=== PATIENT | male | born 1955 | race Caucasian/White ===

== ENCOUNTER 2023-03-11 11:40 | Emergency (ER) | payer MEDICARE, MEDICAID ==
[~2023-03-11] VITALS: Ht 172.7 cm; Wt 72.7 kg
[2023-03-11 11:54] VITALS: BP 146/78; PULSE 67; RESP 18; TEMP 98.3; O2SAT 99
[2023-03-11] MEDS ORDERED: AMOX1TAB8 PO (12:12)
== END 2023-03-11 12:37 | disposition home or self-care (01) ==
LOC: MED 11:40
DX: L03.114 Cellulitis of left upper limb (principal); Z79.2 Long term (current) use of antibiotics
CPT/HCPCS: 99281

== ENCOUNTER 2023-03-19 09:36 | Emergency (ER) | payer MEDICARE, MEDICAID ==
[~2023-03-19] VITALS: Ht 167.6 cm; Wt 63.5 kg
[~2023-03-19 09:36] MED LIST: AMOX1TAB8 PO
[2023-03-19 09:48] VITALS: BP 155/86; PULSE 64; RESP 18; TEMP 97; O2SAT 98
[2023-03-19] MEDS ORDERED: SULF-59 PO (10:06)
[2023-03-19 10:11] VITALS: BP 155/86; PULSE 64; RESP 18; TEMP 97
[2023-03-19 10:22] VITALS: O2SAT 98
== END 2023-03-19 10:27 | disposition home or self-care (01) ==
LOC: MED 09:36
DX: S41.002A Unspecified open wound of left shoulder, initial encounter (principal); S41.001A Unspecified open wound of right shoulder, initial encounter; L08.89 Other specified local infections of the skin and subcutaneous tissue; L03.114 Cellulitis of left upper limb; L03.113 Cellulitis of right upper limb; F19.10 Other psychoactive substance abuse, uncomplicated; Z79.2 Long term (current) use of antibiotics; X58.XXXA Exposure to other specified factors, initial encounter; Y92.89 Other specified places as the place of occurrence of the external cause; Y93.89 Activity, other specified; Y99.8 Other external cause status
CPT/HCPCS: 99283

== ENCOUNTER 2023-03-25 07:15 | Emergency (ER) | payer MEDICARE, MEDICAID ==
[~2023-03-25] VITALS: Ht 172.7 cm; Wt 70.8 kg
[~2023-03-25 07:15] MED LIST changes: +SULF-59 PO
[2023-03-25 07:30] VITALS: BP 184/79; PULSE 79; RESP 15; TEMP 96.8; O2SAT 100
[2023-03-25] MEDS ORDERED: SULF-59 PO (07:52)
[2023-03-25] MEDS ORDERED: BUPR1TAB45 SL (07:52)
[2023-03-25] MEDS ORDERED: NALO4SPR NS (07:52)
[2023-03-25 08:19] VITALS: BP 184/79; PULSE 79; RESP 16; TEMP 96.8; O2SAT 100
== END 2023-03-25 08:19 | disposition home or self-care (01) ==
LOC: MED 07:15
DX: F11.20 Opioid dependence, uncomplicated (principal); L02.414 Cutaneous abscess of left upper limb; L02.413 Cutaneous abscess of right upper limb; I10 Essential (primary) hypertension; Z76.0 Encounter for issue of repeat prescription; Z79.899 Other long term (current) drug therapy
CPT/HCPCS: 99283

== ENCOUNTER 2023-11-08 18:25 | Emergency (ER) | payer BC, OTHER ==
[~2023-11-08] VITALS: Ht 172.7 cm; Wt 73.0 kg
[~2023-11-08 18:25] MED LIST changes: +BUPR1TAB45 SL; +NALO4SPR NS
[2023-11-08 18:36] VITALS: BP 105/92; PULSE 62; RESP 12; TEMP 98.4; O2SAT 99
[2023-11-08 19:12] LABS: BASOPHILS % (AUTO) 0.5 % (0.0-2.0); EOSINOPHILS % (AUTO) 0.4 % (0.0-4.0); HEMATOCRIT 32.4 % (36-52); HEMOGLOBIN 11.1 g/dL (12.0-18.0); LYMPHOCYTES # (AUTO) 3.2 K/uL (2.0-11.5); LYMPHOCYTES % (AUTO) 32.3 % (20.5-51.1); MEAN CORPUSCULAR HEMOGLOBIN 31 pg (27-31); MEAN CORPUSCULAR HGB CONC 34 g/dL (33-37); MEAN CORPUSCULAR VOLUME 89.6 fL (80-94); MONOCYTES # (AUTO) 0.5 K/uL (0.8-1.0); MONOCYTES % (AUTO) 5.3 % (1.7-9.3); NEUTROPHILS % (AUTO) 61.5 % (42.2-75.2); PLATELET COUNT (AUTO) 336 K/uL (140-450); RED BLOOD CELL COUNT(AUTO) 3.62 MIL/uL (4.20-6.10); RED CELL DISTRIBUTION WIDTH 14.5 % (11.6-13.7); WHITE BLOOD COUNT (AUTO) 9.8 K/uL (4.8-10.8)
[2023-11-08] MEDS: ALUMINUM HYD/MAG/SIMETHICONE 30 ML UDC PO ONE (19:13)
[2023-11-08] MEDS: FAMOTIDINE 20 MG/2 ML VIAL IVP ONE (19:18)
[2023-11-08] MEDS: KETOROLAC 30 MG/ML VIAL IVP ONE (19:19)
[2023-11-08 19:37] VITALS: O2SAT 99
[2023-11-08 19:38] LABS: ALANINE AMINOTRANSFERASE 24 U/L (12-78); ALBUMIN 3.7 g/dL (3.4-5.0); ALKALINE PHOSPHATASE 97 U/L (50-136); ASPARTATE AMINOTRANSFERASE 28 U/L (15-37); BILIRUBIN,DIRECT 0.1 mg/dL (0.0-0.3); LIPASE 16 U/L (16-77); TOTAL BILIRUBIN 0.4 mg/dL (0.0-1.0); TOTAL PROTEIN, SERUM 8.2 g/dL (6.4-8.2)
[2023-11-08 19:54] LABS: ANION GAP 14.4 (8-16); CALCIUM 9.8 mg/dL (8.5-10.1); CARBON DIOXIDE 28.6 mmol/L (21-32); CREATININE 0.9 mg/dL (0.6-1.3)
[2023-11-08 21:55] VITALS: BP 149/78; PULSE 55; RESP 18; TEMP 98.3; O2SAT 98
== END 2023-11-08 21:55 | disposition left against medical advice (07) ==
LOC: MED 18:25
DX: R07.9 Chest pain, unspecified (principal); R10.13 Epigastric pain; I10 Essential (primary) hypertension; E78.5 Hyperlipidemia, unspecified; F11.90 Opioid use, unspecified, uncomplicated; M06.9 Rheumatoid arthritis, unspecified; Z79.1 Long term (current) use of non-steroidal anti-inflammatories (NSAID); Z79.2 Long term (current) use of antibiotics; Z79.899 Other long term (current) drug therapy
CPT/HCPCS: 36415; 71045; 71275; 80048; 80076; 83690; 84484; 85025; 85379; 93005; 96374; 96375; 99285; J1885; J3490; Q0092; Q9967